=== PATIENT | female | born 1985 | race Caucasian/White ===

== ENCOUNTER 2017-03-16 12:16 | Emergency (ER) | payer OTHER ==
[~2017-03-16] VITALS: Ht 162.6 cm; Wt 54.9 kg
[~2017-03-16 12:16] MED LIST: SM
[2017-03-16 12:31] VITALS: BP 124/79; PULSE 78; RESP 16; TEMP 96.3; O2SAT 97
--- NOTE | 2017-03-16 12:39 | NUR ---
Pt to bed 7
--- NOTE | 2017-03-16 12:50 | NUR ---
PATIENT STARTED VOMITING WEDNESDAY MORNING AFTER SHE DRINK ALCOHOL ON WEDNESDAY.PER PATIENT CONTINUES TO FEEL NAUSEATED AND VOMITED X 1 TODAY.ALSO CLAIMS SHE COULD NOT HOLD DOWN FOOD OR FLUIDS WITH MILD ABDOMINAL DISCOMFORTS.NO SIGNS AND SYMPTOMS OF DEHYDRATION.NO OTHER COMPLAINTS/INJURIES PER PATIENT OR NOTED
--- NOTE | 2017-03-16 13:00 | NUR ---
ER at bedside examining patient.
[2017-03-16] MEDS ORDERED: ONDANSETRON 4 MG ODT TAB PO ONE (13:15)
[2017-03-16] MEDS ORDERED: LORazepam 2 MG/ML VIAL (FOR ER USE) IM ONE (13:15)
--- NOTE | 2017-03-16 14:10 | NUR ---
Patient given written and verbal discharge instructions and verbalizes understanding. ER MD discussed with patient the results and treatment provided. Patient in stable condition.ID band removed. Rx of ativan given. Patient educated on pain management and to follow up with PMD in 2 days. Pain Scale 0/10. Opportunity for questions provided and answered.
[2017-03-16 14:22] VITALS: BP 109/69; PULSE 73; RESP 17; TEMP 98.7; O2SAT 97
== END 2017-03-16 14:22 | disposition home or self-care (01) ==
LOC: SED 12:16
DX: R11.2 Nausea with vomiting, unspecified (principal); J45.909 Unspecified asthma, uncomplicated
CPT/HCPCS: 96372; 99283; J2060; Q0162

== ENCOUNTER 2017-11-12 12:14 | Emergency (ER) | payer OTHER ==
[~2017-11-12] VITALS: Ht 162.6 cm; Wt 49.9 kg
[2017-11-12 12:15] VITALS: BP_SYST 114
--- NOTE | 2017-11-12 12:20 | NUR ---
Patient triaged and placed in waiting room. VSS and patient appears in no acute distress at this time. Accompanied by SELF, awaiting available bed, and MD notified of need for MSE.
--- NOTE | 2017-11-12 13:00 | NUR ---
BROUGHT BACK TO BED #3 AND REPORT GIVEN TO CAROL Addendum: 11/12/17 at 1328 by [facility] Report given to MICHELLE Munroe
[2017-11-12 13:11] LABS: BASOPHILS % (AUTO) 0.6 % (0.0-2.0); EOSINOPHILS # (AUTO) 0.2 K/uL (0.0-0.4); HEMATOCRIT 40.5 % (36-48); HEMOGLOBIN 13.4 g/dL (12.0-16.0); LYMPHOCYTES # (AUTO) 1.9 K/uL (1.0-5.5); MEAN CORPUSCULAR HEMOGLOBIN 30 pg (27-31); MEAN CORPUSCULAR HGB CONC 33 % (32-36); MEAN CORPUSCULAR VOLUME 90 fL (79.0-98.0); MONOCYTES # (AUTO) 0.5 K/uL (0.0-1.0); NEUTROPHILS # (AUTO) 4.5 K/uL (1.8-7.7); NEUTROPHILS % (AUTO) 62.4 % (40.0-70.0); PLATELET COUNT (AUTO) 247 K/uL (130-430); RED BLOOD CELL COUNT(AUTO) 4.51 MIL/uL (4.2-6.2); RED CELL DISTRIBUTION WIDTH 12.4 % (9.0-15.0); WHITE BLOOD COUNT (AUTO) 7.1 K/uL (4.8-10.8)
[2017-11-12 13:12] LABS: CALCIUM 8.7 mg/dL (8.4-11.0); CREATININE 0.64 mg/dL (0.55-1.30); POTASSIUM 3.7 mmol/L (3.5-5.1)
[2017-11-12 13:18] LABS: TOTAL BILIRUBIN 0.5 mg/dL (0.0-1.0)
--- NOTE | 2017-11-12 13:50 | NUR ---
Pt presents to ER c/o RLQ pain of 8/10 x 2 days. Pt states that pain worsens with movement, radiates to back. Pt also reports slight constipation and 1 vomiting episode 2 days ago when symptoms began. Pt denies any chest pain or sob. Pt reports history of IBS, gastritis, and asthma. Pt in no acute distress, AOX4, NKDA.
[2017-11-12] MEDS ORDERED: MAG-AL HYDROX/SIMETH 30 ML UDC PO ONE (14:15)
[2017-11-12] MEDS ORDERED: BELLADONNA ALKALOIDS/PHENOBARB 5 ML UDC PO ONE (14:15)
[2017-11-12] MEDS ORDERED: LIDOCAINE VISCOUS 2%, 15 ML UDC MM ONE (14:15)
--- NOTE | 2017-11-12 14:25 | NUR ---
Pt given GI cocktail; pt tolerated well; will continue to monitor.
--- NOTE | 2017-11-12 15:00 | NUR ---
Pt states that GI cocktail provided little to no relief of abdominal pain. Dr. Mendez informed.
--- NOTE | 2017-11-12 15:30 | NUR ---
Dr. Mendez still awaiting urinalysis results which were collected earlier. Lab contacted. Awaiting call back from lab.
[2017-11-12 15:49] LABS: BILIRUBIN,URINE NEGATIVE (NEGATIVE); BLOOD, URINE NEGATIVE (NEGATIVE); CLARITY/URINE CLEAR (CLEAR); COLOR,URINE YELLOW (YELLOW); GLUCOSE,URINE NEGATIVE (NEGATIVE); KETONES,URINE NEGATIVE (NEGATIVE); LEUKOCYTE ESTERASE ,URINE NEGATIVE (NEGATIVE); NITRITE, URINE NEGATIVE (NEGATIVE); PH,URINE 6.5 (5.0-8.0); PROTEIN URINE NEGATIVE (NEGATIVE); UROBILINOGEN,URINE 0.2 (0.2-1.0)
[2017-11-12 16:30] VITALS: BP_SYST 111
--- NOTE | 2017-11-12 16:30 | NUR ---
Patient given written and verbal discharge instructions and verbalizes understanding. ER MD discussed with patient the results and treatment provided. Patient in stable condition. ID arm band removed. No Rx given. Patient educated on pain management and to follow up with PMD. Pain Scale 2. Opportunity for questions provided and answered.
== END 2017-11-12 16:30 | disposition home or self-care (01) ==
LOC: SED 12:14
DX: R10.31 Right lower quadrant pain (principal); R11.2 Nausea with vomiting, unspecified; J45.909 Unspecified asthma, uncomplicated; Z87.442 Personal history of urinary calculi; Z98.51 Tubal ligation status
CPT/HCPCS: 36415; 80053; 81003; 81025; 83690; 84703; 85025; 99284; J2001